=== PATIENT | female | born 1955 ===

== ENCOUNTER 2024-04-26 06:22 | Day surgery (SDC) | payer OTHER ==
[~2024-04-26 06:22] MED LIST: ALLEGRA ALLERG180 MG; DOPAMINE; INSULINA LANTUS; IRBESARTAN300 MG; SYNJARDY 12.5-1 EACH; SYNTHROID125 MCG; TRAMADOR; VERAPAMIL 240 MG
[2024-04-26] MEDS ORDERED: VANCOMYCIN HCL 1,000 MG VIAL IR ONE (11:15)
[2024-04-26] MEDS ORDERED: CEFAZOLIN SODIUM 1,000 MG VIAL IV ONE (11:15)
[2024-04-26] MEDS ORDERED: TRAM1TAB98 PO (12:12)
[2024-04-26] MEDS ORDERED: MACROBID 100 M100 MG PO (12:12)
[2024-04-26] MEDS ORDERED: MEPERIDINE HCL 25 MG/ML AMPUL IV ONE (12:45)
== END 2024-04-26 15:20 | disposition home or self-care (01) ==
LOC: CIR.AMB 06:22
PROVIDERS: ATTEND Obstetrics & Gynecology Gynecology
DX: N81.11 Cystocele, midline (principal); Z91.041 Radiographic dye allergy status